=== PATIENT | female | born 1980 | race Caucasian/White ===

== ENCOUNTER 2018-12-17 20:33 | Emergency (ER) | payer MEDICAID ==
[~2018-12-17] VITALS: Ht 152.4 cm; Wt 56.7 kg
[2018-12-17 20:40] VITALS: BP 153/79
--- NOTE | 2018-12-17 20:43 | NUR ---
PT AMBULATORY TO ER LOBBY W/ STEADY GAIT IN STABLE CONDITION.
--- NOTE | 2018-12-17 22:04 | NUR ---
PT TO ED WITH C/O DIFFICULTY BREATIHNG AND SOB SUDDEN ONSET X 1 HR. PT DENIES ANY PHYSICAL EXERTION UPON ONSET OF SYMPTOMS. PT DENIES CP AT THIS TIME. LUNG SOUNDS CLEAR TO ASCULTATION. NO DISTRESS NOTED. PT ABLE TO SPEAK WITHOUT DIFFICULTY. PT PLACED INTO BED, PENDING MD PÉREZ.
[2018-12-17] MEDS ORDERED: ALPRAZolam 0.5 MG TAB PO ONE (23:15)
--- NOTE | 2018-12-18 00:10 | NUR ---
Patient discharged with v/s stable. Written and verbal after care instructions given and explained. Patient verbalized understanding. Ambulatory with steady gait. All questions addressed prior to discharge. Advised to follow up with PMD.
[2018-12-18 00:23] VITALS: BP 134/79
== END 2018-12-18 00:10 | disposition home or self-care (01) ==
LOC: MED 20:33
DX: K21.9 Gastro-esophageal reflux disease without esophagitis (principal); F41.9 Anxiety disorder, unspecified
CPT/HCPCS: 71045; 99283; Q0092